=== PATIENT | male | born 1995 | race Caucasian/White ===

== ENCOUNTER 2023-08-06 22:27 | Observation (INO) | payer MEDICAID, SELFPAY ==
[2023-08-06] VITALS (12 sets, daily range): BP systolic 124–142; BP diastolic 75–100; PULSE 0–105; RESP 18–21; TEMP 36.1; O2SAT 96–98
--- NOTE | 2023-08-06 22:25 | W.ED.GENAD ---
Discharge Plan Disposition Patient Disposition: Admit to [facility] Condition: Improving Discharge Details Clinical Impression: Acute hyperglycemia, Syncope Primary Care Provider: None,None ED Provider: Herve Polo Discharge Data Discharge Physician: Herve Polo Medical Decision Making MDM: Summary: Patient who presents to the emergency department after he had a syncopal episode while he was in the bathroom found unresponsive him Narcan and fluids and fingerstick glucose showed sugar of 500. He does state he has been drinking a lot of fluid lately and is an unknown diabetic. Labs show a VBG which shows acidosis but urinalysis does not show ketonuria. Serum glucose was elevated. CAT scan of the head was negative and an EKG was done and negative. He is unsure why he had the syncopal episode and why he is hyperglycemic he was given IV fluids and insulin in the emergency department and will be admitted for observation Data Review Analysis All the data on this patient was reviewed by me including laboratory and imaging studies as well as bedside studies performed by me Independent review of Studies Imaging CT scan was negative Lab: Labs show hyperglycemia and glycosuria but no ketonuria Risk Stratification: Patient with syncope and also hyperglycemia is not sure if the syncopal episode cause hypoglycemia or vice versa but he will be admitted for observation and further studies Differential Diagnosis: 1. Syncope 2. New onset diabetes 3. Hyperglycemia 4. Drug overdose 5. Consultants: I have consulted with the hospitalist who will admit the patient for observation Shared disposition: I have shared with the patient that he will need to be admitted Impression: Medical Records Medical records reviewed: Yes I reviewed the patient's medical records. Lab Data Lab results reviewed: Yes I reviewed the patient's lab results. ECG Data Attestation: I personally reviewed and interpreted this ECG (s) as follows: Interpretation: Normal sinus rhythm heart rate of [address]-T changes normal axis HPI General Date/Time Provider Initiated Documentation: 08/06/23 22:38. HPI Narrative: Patient presents emergency department after found unresponsive in the bathtub. He was giving Narcan and brought into the emergency department. Fingerstick glucose by the paramedics was 560. Patient is not a known diabetic. Denies any drug use. Review of Systems Narrative: Review of Systems: Constitutional: No fevers, chills, sweats Eye: No recent visual problems ENT: No ear pain, nasal congestion, sore throat Respiratory: No shortness of breath, cough Cardiovascular: No Chest pain, palpitations, syncope Gastrointestinal: No nausea, vomiting, diarrhea Genitourinary: No hematuria Mike/Lymph: Negative for bruising tendency, swollen lymph glands Endocrine: Negative for excessive thirst, excessive hunger Musculoskeletal: No back pain, neck pain, joint pain, muscle pain, decreased range of motion Integumentary: No rash, pruritus, abrasions Neurologic: Alert & oriented X 4 Psychiatric: No anxiety, depression PFSH All Active Problems (Updated 08/06/23 @ 23:57 by Herve Polo MD) Syncope (Chronic) Acute hyperglycemia (Acute) Social History Smoking/Tobacco Use Status: Current every day Tobacco Type: e-cigarettes Smoking risk assessment performed?: Yes Substance use type: does not use Do you feel safe at home: Yes Do you feel safe in your relationship?: Yes Exam Narrative Exam Narrative: Exam; vitals signs as reported above normal Constitutional; In no acute distress, afebrile General: cooperative, healthy appearing, comfortable and no acute distress HEENT: Head: normal to inspection, no palpable skull fracture and normocephalic atraumatic Eyes: : appearance normal, both eyes and all related structures EOM intact bilaterally Pupils: PERRL : conjunctiva normal Direct ophthalmoscopy: normal light reflex, normal conjunctiva, normal visual acuity Ears: Normal TM, normal external canal Nose: normal no rhinorreha Neck no JVD, supple non tender Neck: normal visual inspection, full ROM and no lymphadenopathy Chest: normal inspection of the chest Respiratory : normal respiratory effort and able to speak in complete sentences no wheezing no rales Cardio Rate: regular rate, rhythm: regular rhythm normal heart sounds S1 and S2 no murmurs, gallops, or rubs GI : normal to inspection, normal bowel sounds, soft, non tender, non distended, no organomegaly Back/Spine/ no CVA tenderness Thoracic/Lumbar Spine: no tenderness or deformities Skin no rashes or lesions Neuro: patient alert oriented x 4 and no meningeal signs, Cranial Nerves: CN's II-XI intact bilaterally, Cognition: normal cognition, Speech: speech normal, Gait: normal gait, Depp tendon reflexes normal 2+ muscle strength 5/5 bilaterally Extremities, no edema, full range of motion, normal strength : normal Rectal:
--- NOTE | 2023-08-06 22:30 | DI.CT_ITS ---
Exam(s) CT HEAD WO EXAM: CT HEAD WO CLINICAL HISTORY: unresposniveness. TECHNIQUE: Imaging Protocol: Axial computed tomography images with coronal and sagittal reformatted images were created and reviewed COMPARISON: No exams were available for comparison FINDINGS: Ventricles and Extra axial spaces: Normal in size and morphology for the patient's age. Hemorrhage: None. Cerebral parenchyma: There is an area of encephalomalacia at the left temporoparietal junction. No a cute mass effect is identified. Midline shift: None. Brainstem/Cerebellum: Normal. Calvarium: Normal. Visualized Paranasal sinuses/Mastoids: Clear. Soft Tissues: Unremarkable. IMPRESSION: No acute intracranial process. RADIATION DOSE DELIVERED: Total DLP DATA REPOSITORY: All CT scans at this facility are submitted to the National Radiology Data Registry (NRDR) Dose Index Registry (DIR) with the [employer] ([employer]). RADIATION OPTIMIZATION: All CT scans at this facility use at least one of these dose optimization te chniques: automated exposure control; mA and/or kV adjustment per patient size (includes targeted exa ms where dose is matched to clinical indication); or iterative reconstruction.
[2023-08-06] MEDS: Normal Saline 1,000 ML 1000 ML IV (22:43)
[2023-08-06 22:45] LABS: BE (Venous) -5 mmol/L (-2-3); HCO3 (Venous) 23 mmol/L (23-28); O2 Sat (Venous) 71 %; TCO2 (Venous) 22 mmol/L (24-29); pCO2 (Venous) 59 mmHg (41-51); pO2 (Venous) 46 mmHg
[2023-08-06 22:46] LABS: Abs Immature Grans 0.23 10^3/uL (0.0-0.06); Absolute Basophil Count 0.04 10^3/uL (0.0-0.2); Absolute Eosinophil Count 0.06 10^3/uL (0.0-0.7); Absolute Lymphocyte Count 2.74 10^3/uL (1.2-3.4); Absolute Monocyte Count 0.53 10^3/uL (0.1-0.8); Absolute Neutrophil Count 6.73 10^3/uL (1.2-6.7); Basophils % 0.4; Eosinophils % 0.6; HCT 42.1 % (40.0-50.0); HGB 14.2 g/dL (13.5-17.5); Immature Grans % 2.2; Lymphocytes % 26.5; MCHC 33.7 % (32.0-36.0); MCV 92 fL (80-95); MPV 9.2 fL (8.0-11.0); Monocytes % 5.1; Neutrophils % 65.2; Platelet Count 337 10^3/uL (130-400); RBC 4.58 10^6/uL (4.36-5.78); RDW 11.8 % (11.8-14.1); RDW-SD 39.9 fL; WBC 10.33 10^3/uL (4.4-10.8)
[2023-08-06 22:56] LABS: Bilirubin Negative (Negative); Blood Negative (Negative); Clarity Clear (Clear); Glucose 500 mg/dL (Negative); Ketones Negative (Negative); Leukocyte Esterase Negative (Negative); Nitrite Negative (Negative); Specific Gravity >= 1.030 (1.005-1.025); Urobilinogen 0.2 mg/dL (Up to 0.2)
[2023-08-06 23:05] LABS: Epithelial Cells Rare HPF (Negative); WBC 0-2 HPF (0-5)
[2023-08-06 23:06] LABS: Bacteria Negative HPF (Negative); C & S Indicated? No; Casts 3-5 Hyaline LPF (Negative); Crystals Negative HPF (Negative); Mucus Heavy (Negative)
[2023-08-06 23:07] LABS: ALT 35 U/L (16-63); AST 20 U/L (15-37); Alkaline Phosphatase 61 U/L (46-116); Anion Gap 11.8 mmol/L (3-11); BUN 13 mg/dL (7-18); Bilirubin, Total 0.2 mg/dL (0.2-1.0); CO2 25.2 mmol/L (21.0-32.0); CREATININE 1.5 mg/dL (0.70-1.30); Calcium 8.3 mg/dL (8.5-10.1); Chloride 100 mmol/L (98-107); Estimated GFR 64.23 (mL/min/1.73m2); Glucose 402 mg/dL (74-106); Lipase 30 U/L (16-77); Sodium 137 mmol/L (136-145); Total Protein 7.4 g/dL (6.4-8.2)
[2023-08-06 23:08] LABS: *AMPHETAMINES SCREEN URINE Negative (Negative); *BARBITURATES SCREEN URINE Negative (Negative); *BENZODIAZEPINES SCREEN URINE Negative (Negative); Cannabinoids THC Negative (Negative); Cocaine Screen,Urine Positive (Negative); METHADONE URINE SCREEN Negative (Negative); OPIATES URINE SCREEN Negative (Negative)
[2023-08-06 23:09] LABS: Tricyclic Antidepressants Negative (Negative)
--- NOTE | 2023-08-06 23:15 | RT.EKG_ITS ---
APPROVED REPORT Exam: Resting ECG Reason for Exam: syncope Patient Location: E HR:85 bpm ECG Measurements Heart Rate 85 AXIS CA 151 P 66 QRSd 109 QRS -11 QT 378 T 26 QTc 449 Conclusion Sinus rhythm...normal P axis, V-rate 60- 99
--- NOTE | 2023-08-06 23:41 | DI.VRAD_ITS ---
PROCEDURE INFORMATION: Exam: CT Head Without Contrast Exam date and time: 08/06/2023 11:18 PM Age: 28 years old Clinical indication: Injury or trauma; Fall; Blunt trauma (contusions or hematomas); Consciousness not specified; Injury details: Fell in shower, hit head, was unresponsive; Additional info: HX of stroke TECHNIQUE: Imaging protocol: Computed tomography of the head without contrast. COMPARISON: No relevant prior studies available. FINDINGS: Brain: Mild volume loss No hemorrhage. Unremarkable white matter. No mass effect. Cerebral ventricles: No ventriculomegaly. Paranasal sinuses: Visualized sinuses are unremarkable. No fluid levels. Mastoid air cells: Visualized mastoid air cells are well aerated. Bones/joints: Unremarkable. No acute fracture. Soft tissues: Unremarkable. IMPRESSION: No acute intracranial hemorrhage noted Dictated and Authenticated by: Say Ayala MD. Ordering:TRISH Edgar MD
[2023-08-07] VITALS (58 sets, daily range): BP systolic 74–135; BP diastolic 53–92; PULSE 50–81; RESP 9–21; TEMP 36.6–36.9; O2SAT 93–100
[2023-08-07] MEDS: INSULIN REGULAR IN 0.9 % NACL 100 UNIT/100 ML BAG IV (00:02)
[2023-08-07 00:34] LABS: BE (Venous) -1 mmol/L (-2-3); HCO3 (Venous) 25 mmol/L (23-28); O2 Sat (Venous) 89 %; TCO2 (Venous) 23 mmol/L (24-29); pCO2 (Venous) 52 mmHg (41-51); pO2 (Venous) 60 mmHg
[2023-08-07 00:42] LABS: Hemoglobin A1C 5.5 % (<5.7)
[2023-08-07 00:44] LABS: Troponin I < 50 ng/L (<or=60)
[2023-08-07 00:56] LABS: Anion Gap 14.2 mmol/L (3-11); BUN 14 mg/dL (7-18); CO2 22.8 mmol/L (21.0-32.0); CREATININE 1.6 mg/dL (0.70-1.30); Calcium 8.4 mg/dL (8.5-10.1); Calculated LDL 131 mg/dL (<100); Chloride 100 mmol/L (98-107); Cholesterol 190 mg/dL (<200); ETHANOL BLOOD < 3.0 mg/dL (<10); Estimated GFR 59.44 (mL/min/1.73m2); Glucose 410 mg/dL (74-106); HDL Cholesterol 49 mg/dL (40-60); Magnesium 1.8 mg/dL (1.8-2.4); Sodium 137 mmol/L (136-145); TSH (W/Ref FT4) 7.08 uIU/mL (0.36-3.74); Triglyceride 54 mg/dL (<150)
[2023-08-07 01:02] LABS: D-Dimer 397 ng/mlFEU (<500)
[2023-08-07 01:15] LABS: FREE T4 0.93 ng/dL (0.76-1.46)
--- NOTE | 2023-08-07 02:00 | W.PC.ACHO ---
Registration Status: REG ER Primary Language: Preferred Language: ED Information & Data Chief Complaint [id number] 08/06/23 22:29 Chief Complaint [id number] 08/06/23 22:26 Triage Note PT was found unresponsive in 08/06/23 22:26 the bathroom. PT was given Narcan and became A&OX4. PT BG was 500 for EMS Most Recent Vital Signs Temperature 36.1 C L 08/06/23 22:26 Temperature Source Temporal Artery Scan 08/06/23 22:26 Pulse 61 08/07/23 01:16 Pulse 63 08/07/23 01:20 Respiratory Rate 11 L 08/07/23 01:01 Respiratory Effort Normal 08/06/23 22:29 Respiratory Depth Normal 08/06/23 22:29 Respiratory Pattern Normal 08/06/23 22:29 Blood Pressure 107/53 L 08/07/23 01:16 Blood Pressure Mean 66 08/07/23 01:16 Pulse Oximetry 96 08/07/23 01:20 Oxygen Delivery Method Room Air 08/06/23 22:26 Oxygen Flow Rate 0 08/06/23 22:26 Pain Level 0 08/06/23 22:26 Allergies No Known Allergies Allergy (Unverified 08/07/23 01:13) IV IV Catheter Type [Right Saline Lock Antecubital] IV Catheter Type [Left Saline Lock Antecubital] IV Catheter Gauge [Right 18 Antecubital] IV Catheter Gauge [Left 18 Antecubital] Diet Orders Category Date Time Status Diabetes Consistent CHO [DIET] Nutrition 08/07/23 Breakfast Active Diagnostics 08/07/23 08/07/23 08/07/23 Range/Units 01:28 01:27 00:26 WBC (4.4-10.8) 10^3/uL RBC (4.36-5.78) 10^6/uL Hgb (13.5-17.5) g/dL Hct (40.0-50.0) % MCV (80-95) fL MCH (27.0-33.0) pg MCHC (32.0-36.0) % RDW (11.8-14.1) % Plt Count (130-400) 10^3/uL MPV (8.0-11.0) fL Immature Gran % Neutrophils % Lymphocytes % Monocytes % Eosinophils % Basophils % Nucleated RBC % (0.0-0.3) % Absolute Neutrophils (1.2-6.7) 10^3/uL Absolute Lymphocytes (1.2-3.4) 10^3/uL Absolute Monocytes (0.1-0.8) 10^3/uL Absolute Eosinophils (0.0-0.7) 10^3/uL Absolute Basophils (0.0-0.2) 10^3/uL D-Dimer (<500) ng/mlFEU VBG pH 7.30 L (7.31-7.41) VBG pCO2 52 H (41-51) mmHg VBG pO2 60 mmHg VBG HCO3 25 (23-28) mmol/L VBG Total CO2 23 L (24-29) mmol/L VBG O2 Saturation 89 % VBG Base Excess -1 (-2-3) mmol/L Sodium (136-145) mmol/L Potassium (3.5-5.1) mmol/L Chloride (98-107) mmol/L Carbon Dioxide (21.0-32.0) mmol/L Anion Gap (3-11) mmol/L BUN (7-18) mg/dL Creatinine (0.70-1.30) mg/dL Est GFR (CKD-EPI 2020) (mL/min/1.73m2) Glucose (74-106) mg/dL Hemoglobin A1c (<5.7) % C-Peptide ng/ml Pending Calcium (8.5-10.1) mg/dL Phosphorus Pending Magnesium (1.8-2.4) mg/dL Total Bilirubin (0.2-1.0) mg/dL AST (15-37) U/L ALT (16-63) U/L Alkaline Phosphatase (46-116) U/L Troponin I (<or=60) ng/L Total Protein (6.4-8.2) g/dL Albumin (3.4-5.0) g/dL Triglycerides (<150) mg/dL Total Cholesterol (<200) mg/dL LDL Cholesterol, Calc (<100) mg/dL HDL Cholesterol (40-60) mg/dL Lipase (16-77) U/L TSH (0.36-3.74) uIU/mL Free T4 (0.76-1.46) ng/dL Urine Color Pending (Yellow) Urine Clarity Pending (Clear) Urine pH Pending (5-8) Ur Specific [place] Pending (1.005-1.025) Urine Protein Pending (Negative) mg/dL Urine Ketones Pending (Negative) mg/dL Urine Blood Pending (Negative) Urine Nitrite Pending (Negative) Urine Bilirubin Pending (Negative) Urine Urobilinogen Pending (Up to 0.2) mg/dL Ur Leukocyte Esterase Pending (Negative) Urine RBC (0-2) HPF Urine WBC (0-5) HPF Ur Epithelial Cells (Negative) HPF Urine Crystals (Negative) HPF Urine Bacteria (Negative) HPF Urine Casts (Negative) LPF Urine Mucus (Negative) Ur Culture Indicated? Urine Glucose Pending (Negative) mg/dL Urine Opiates Screen (Negative) Urine Methadone Screen (Negative) Ur Barbiturates Screen (Negative) Ur Tricyclics Screen (Negative) Ur Amphetamines Screen (Negative) U Benzodiazepines Scrn (Negative) Urine Cocaine Screen (Negative) Ur THC Screen (Negative) Ethyl Alcohol (<10) mg/dL 08/06/23 08/06/23 08/06/23 Range/Units 22:48 22:39 22:38 WBC 10.33 (4.4-10.8) 10^3/uL RBC 4.58 (4.36-5.78) 10^6/uL Hgb 14.2 (13.5-17.5) g/dL Hct 42.1 (40.0-50.0) % MCV 92 (80-95) fL MCH 31.0 (27.0-33.0) pg MCHC 33.7 (32.0-36.0) % RDW 11.8 (11.8-14.1) % Plt Count 337 (130-400) 10^3/uL MPV 9.2 (8.0-11.0) fL Immature Gran % 2.2 Neutrophils % 65.2 Lymphocytes % 26.5 Monocytes % 5.1 Eosinophils % 0.6 Basophils % 0.4 Nucleated RBC % 0.0 (0.0-0.3) % Absolute Neutrophils 6.73 H (1.2-6.7) 10^3/uL Absolute Lymphocytes 2.74 (1.2-3.4) 10^3/uL Absolute Monocytes 0.53 (0.1-0.8) 10^3/uL Absolute Eosinophils 0.06 (0.0-0.7) 10^3/uL Absolute Basophils 0.04 (0.0-0.2) 10^3/uL D-Dimer 397 (<500) ng/mlFEU VBG pH 7.20 L (7.31-7.41) VBG pCO2 59 H (41-51) mmHg VBG pO2 46 mmHg VBG HCO3 23 (23-28) mmol/L VBG Total CO2 22 L (24-29) mmol/L VBG O2 Saturation 71 % VBG Base Excess -5 L (-2-3) mmol/L Sodium 137 137 (136-145) mmol/L Potassium 4.0 4.0 (3.5-5.1) mmol/L Chloride 100 100 (98-107) mmol/L Carbon Dioxide 25.2 22.8 (21.0-32.0) mmol/L Anion Gap 11.8 H 14.2 H (3-11) mmol/L BUN 13 14 (7-18) mg/dL Creatinine 1.5 H 1.6 H (0.70-1.30) mg/dL Est GFR (CKD-EPI 2020) 64.23 59.44 (mL/min/1.73m2) Glucose 402 H 410 H (74-106) mg/dL Hemoglobin A1c 5.5 (<5.7) % C-Peptide ng/ml Calcium 8.3 L 8.4 L (8.5-10.1) mg/dL Phosphorus Magnesium 1.8 (1.8-2.4) mg/dL Total Bilirubin 0.2 (0.2-1.0) mg/dL AST 20 (15-37) U/L ALT 35 (16-63) U/L Alkaline Phosphatase 61 (46-116) U/L Troponin I < 50 (<or=60) ng/L Total Protein 7.4 (6.4-8.2) g/dL Albumin 4.0 (3.4-5.0) g/dL Triglycerides 54 (<150) mg/dL Total Cholesterol 190 (<200) mg/dL LDL Cholesterol, Calc 131 H (<100) mg/dL HDL Cholesterol 49 (40-60) mg/dL Lipase 30 (16-77) U/L TSH 7.08 H (0.36-3.74) uIU/mL Free T4 0.93 (0.76-1.46) ng/dL Urine Color Yellow (Yellow) Urine Clarity Clear (Clear) Urine pH 6.0 (5-8) Ur Specific [place] >= 1.030 H (1.005-1.025) Urine Protein 100 H (Negative) mg/dL Urine Ketones Negative (Negative) mg/dL Urine Blood Negative (Negative) Urine Nitrite Negative (Negative) Urine Bilirubin Negative (Negative) Urine Urobilinogen 0.2 (Up to 0.2) mg/dL Ur Leukocyte Esterase Negative (Negative) Urine RBC 3-5 H (0-2) HPF Urine WBC 0-2 (0-5) HPF Ur Epithelial Cells Rare (Negative) HPF Urine Crystals Negative (Negative) HPF Urine Bacteria Negative (Negative) HPF Urine Casts 3-5 Hyaline (Negative) LPF Urine Mucus Heavy (Negative) Ur Culture Indicated? No Urine Glucose 500 H (Negative) mg/dL Urine Opiates Screen Negative (Negative) Urine Methadone Screen Negative (Negative) Ur Barbiturates Screen Negative (Negative) Ur Tricyclics Screen Negative (Negative) Ur Amphetamines Screen Negative (Negative) U Benzodiazepines Scrn Negative (Negative) Urine Cocaine Screen Positive A (Negative) Ur THC Screen Negative (Negative) Ethyl Alcohol < 3.0 (<10) mg/dL [id number] Documentation Fingerstick Glucose Start: 08/06/23 22:28 Freq: .Stat Status: Active Protocol: Activity Type Activity Date Activity User E-sign Co-sign Detail Recorded Client Recorded Date Recorded By Document 08/07/23 00:01 [id number] 08/07/23 00:01 FACUNDO Fingerstick Glucose Start: 08/07/23 00:27 Freq: .AC Status: Complete Protocol: Activity Type Activity Date Activity User E-sign Co-sign Detail Recorded Client Recorded Date Recorded By Document 08/07/23 01:08 BKG DAEMON(5) [id number] 08/07/23 01:12 BKG DAEMON(6) Intake and Output - 24 Hour Total 08/06/23 22:24 thru 08/07/23 01:43 Intake Total 2.2 Balance 2.2 Weight 90.718 kg Intake: IV 2.2 Falls Risk Assessment History of Falls No History 08/06/23 22:29 Contributing Factors No Factors 08/06/23 22:29 Fall Total Score 0 08/06/23 22:29 Level of Risk Standard/Low Risk 08/06/23 22:29 Problems (Last Reviewed 08/06/23 @ 22:33 by Herve Polo MD) Syncope (Chronic) Acute hyperglycemia (Acute) v v v v v v v v v Sending and/or Receiving Nurses: Please use comment section below to note any information pertinent to the patient hand-off not included above. Information / Comments: Report received from: gregor Valladares RN
[2023-08-07 02:44] LABS: BUN 14 mg/dL (7-18); Calcium 8.7 mg/dL (8.5-10.1); Chloride 107 mmol/L (98-107); Estimated GFR 104.48 (mL/min/1.73m2); Glucose 90 mg/dL (74-106); Potassium 4.5 mmol/L (3.5-5.1); Sodium 143 mmol/L (136-145)
--- NOTE | 2023-08-07 02:45 | W.PM.HP.N ---
Date of service: 08/07/23 Time of Service: 02:45 Assessment and Plan Assessment and plan (1) Syncope: Status: Chronic Assessment and plan: This happened in the shower, but none of the prodrome and associated symptoms of a vasovagal episode. Reassuring EKG, troponin. Will monitor on tele. Given his history and the presenting acidosis and hyperglycemia, seizure makes the most sense. He has not had one in years and is not on therapy. Will get EEG and Neurology consult. I am concerned for the risk of recurrent seizures especially given his occupation. (2) Acute hyperglycemia: Status: Acute Assessment and plan: Hyperglycemia in 4-500 range on presentation. This combined with the acidemia raised concern for DKA. However with no ketonuria and an initial anion gap of only 11.8, he did not meet diagnostic criteria. I had stopped the insulin drip started in the ED and was going to use subcut basal insulin, but another BMP resulted with a widened anion gap so we decided to resume the drip and admit to the ICU. His glucose immediately corrected so the drip is already off. It turns out the second BMP was ran on the initial blood that was stored, so the anion gap was spurious. Repeat at 2:30am normalized. He does endorse urinating a lot, but upon review symptoms are not c/w diabetes. A1c is normal. I thinks hyperglycemia was an acute stress response, and he does not have diabetes. (3) Cocaine use: Status: Acute Assessment and plan: He denies chronic use, but this may have been a contributing factor to the event. He does not appear intoxicated or withdrawing now on stimulant or opioid. I did send fentanyl screen on urine. (4) Nicotine vapor product user: Status: Acute Assessment and plan: Declines NRT for now. 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 He states he felt well, in his normal state of health, and was taking a shower at around 9pm. His next recollection is being on a stretcher with EMS. He states his [id number] found him in the bathroom after hearing a crash in the bathroom. There was no description of seizure-like activity. He isn't sure how long he was down, but they live [place] the [address] from [facility] so it may have only been a few minutes. He had no prodrome to loosing consciousness. No lightheadedness, nausea, diaphoresis, chest pain, or palpitations. He never had this kind of episode before. His only current symptoms are feeling generally fatigued and sore on his anterior lip. His blood sugar in the field was 500. He was also given Narcan and fluids without report of a clear response. He states he had a stroke when he was born and had seizures as a young child, but they were so long ago he doesn't remember the seizures or taking medication for them. He does have a neurologist in [place] that he last saw a few years ago and had and MRI. He did just move up to [place] to live with his in-laws. 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 He has been eating and drinking normally. He always urinates frequently and drinks a lot of water because he works outside, but no change in this over the past weeks to months. No weight changes. He states he did use a couple bumps of cocaine over the weekend, but not the day this happened. He denies using other drugs or alcohol prior to this episode. Review of Systems Constitutional Constitutional: Denies anorexia, Denies body ache(s), Denies chills, Reports fatigue, Denies fever(s), Denies frequent falls, Denies headache(s) (has had headaches but not recently), Denies weakness, Denies weight gain and Denies weight loss Eyes Eyes: Denies change in vision and Denies irritation ENT Ears, Nose, Mouth, and Throat: Denies vertigo, Denies dizziness, Denies headache(s) (has had headaches but not recently), Denies mouth lesions, Denies nasal congestion, Denies nasal discharge, Denies disequilibrium, Denies sinus pain and Denies sore throat Cardiovascular Cardiovascular: Denies chest pain, Denies chest pain with activity, Denies pedal edema, Denies irregular heart rhythm, Denies palpitations, Denies dyspnea, Denies dyspnea on exertion and Denies orthopnea Respiratory Respiratory: Denies cough, Denies excessive phlegm production, Denies dyspnea, Denies dyspnea on exertion and Denies wheezing Gastrointestinal Gastrointestinal: Denies abdominal pain, Denies melena, Denies hematochezia, Denies change in stool character, Denies constipation, Denies heartburn, Denies diarrhea, Denies nausea and Denies vomiting Genitourinary Genitourinary: Denies hematuria, Denies dysuria and Denies urinary incontinence Musculoskeletal Musculoskeletal: Denies abnormal gait and Denies arthralgias Integumentary/Breasts Skin/Breast: Denies rash and Denies skin ulcer Neurologic Neurologic: Reports as per HPI, Denies abnormal movements, Denies abnormal speech, Denies abnormal gait, Denies behavioral changes, Denies confusion, Denies vertigo, Denies dizziness, Denies frequent falls, Denies headache(s) (has had headaches but not recently), Denies localized weakness, Denies sensory deficit, Denies tremor(s), Denies disequilibrium and Denies weakness Psychiatric Psychiatric: Denies behavioral changes, Denies confusion and Denies mood swings Endocrine Endocrine: Reports fatigue and Denies palpitations Hematologic/Lymphatic Hematologic/Lymphatic: Denies easy bleeding Allergic/Immunologic Allergic/Immunologic: Denies wheezing PFSH All Active Problems (Updated 08/07/23 @ 03:31 by Marvin Nunez) Discharge planning issues (Acute) DVT prophylaxis (Acute) Nicotine vapor product user (Acute) Cocaine use (Acute) Syncope (Chronic) Acute hyperglycemia (Acute) Medical History (Updated 08/07/23 @ 03:31 by Marvin Nunez) History of CVA (cerebrovascular accident) Social History (Updated 08/07/23 @ 03:14 by Marvin Nunez) Smoking/Tobacco Use Status: Current every day Tobacco Type: e-cigarettes Smoking risk assessment performed?: Yes Alcohol Intake: current Alcohol Intake frequency: a few times a month Drug use: Socially Substance use type: crack/cocaine Do you feel safe at home: Yes Do you feel safe in your relationship?: Yes Additional Social history: Lives with Laxmi and her parents in [facility] 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 No acute distress at rest. HEENT: Head atraumatic. Conjunctiva clear, no icterus. PEERL, EOMI. no rhinorrhea. MMM, OP benign. No tongue trauma, only mild swelling anterior lower lip, no cut/bite. Neck is supple with no masses or lymphadenopathy, trachea midline LUNGS: CTAB with normal effort CV: RRR with no murmurs, gallops, or rubs. ABD: +BS, soft, NT/ND, no masses/HSM EXT: no cyanosis, clubbing, or edema MSK: No joint redness or swelling NEURO: CN 2-12 intact. No pronator drift. Normal FNF. Normal sensation to light touch and strength in 4 extremities. DTRs 1+ tejas achilles, toes downgoing bilaterally. Stable/normal gait. Normal speech. No tremor or abnormal movement. Normal speech. SKIN: No rashes or open wounds. PSYCH: normal mood and affect, normal thought process Results Imaging EKG: report reviewed and image reviewed (NSR 86, normal axis, intervals. No ST-T abnormalities) Imaging Studies: CT head: No acute intracranial hemorrhage noted. Mild volume loss. Labs 08/06/23 22:39 08/07/23 02:30 Labs: Laboratory Results - last 24 hr 08/06/23 08/06/23 08/06/23 22:38 22:39 22:48 WBC 10.33 RBC 4.58 Hgb 14.2 Hct 42.1 MCV 92 MCH 31.0 MCHC 33.7 RDW 11.8 Plt Count 337 MPV 9.2 Immature Gran % 2.2 Neutrophils % 65.2 Lymphocytes % 26.5 Monocytes % 5.1 Eosinophils % 0.6 Basophils % 0.4 Nucleated RBC % 0.0 Absolute Neutrophils 6.73 H Absolute Lymphocytes 2.74 Absolute Monocytes 0.53 Absolute Eosinophils 0.06 Absolute Basophils 0.04 D-Dimer 397 VBG pH 7.20 L VBG pCO2 59 H VBG pO2 46 VBG HCO3 23 VBG Total CO2 22 L VBG O2 Saturation 71 VBG Base Excess -5 L Sodium 137 137 Potassium 4.0 4.0 Chloride 100 100 Carbon Dioxide 22.8 25.2 Anion Gap 14.2 H 11.8 H BUN 14 13 Creatinine 1.6 H 1.5 H Est GFR (CKD-EPI 2020) 59.44 64.23 Glucose 410 H 402 H Hemoglobin A1c 5.5 Calcium 8.4 L 8.3 L Magnesium 1.8 Total Bilirubin 0.2 AST 20 ALT 35 Alkaline Phosphatase 61 Troponin I < 50 Total Protein 7.4 Albumin 4.0 Triglycerides 54 Total Cholesterol 190 LDL Cholesterol, Calc 131 H HDL Cholesterol 49 Lipase 30 TSH 7.08 H Free T4 0.93 Urine Color Yellow Urine Clarity Clear Urine pH 6.0 Ur Specific [place] >= 1.030 H Urine Protein 100 H Urine Ketones Negative Urine Blood Negative Urine Nitrite Negative Urine Bilirubin Negative Urine Urobilinogen 0.2 Ur Leukocyte Esterase Negative Urine RBC 3-5 H Urine WBC 0-2 Ur Epithelial Cells Rare Urine Crystals Negative Urine Bacteria Negative Urine Casts 3-5 Hyaline Urine Mucus Heavy Ur Culture Indicated? No Urine Glucose 500 H Urine Opiates Screen Negative Urine Methadone Screen Negative Ur Barbiturates Screen Negative Ur Tricyclics Screen Negative Ur Amphetamines Screen Negative U Benzodiazepines Scrn Negative Urine Cocaine Screen Positive A Ur THC Screen Negative Ethyl Alcohol < 3.0 08/07/23 00:26 WBC RBC Hgb Hct MCV MCH MCHC RDW Plt Count MPV Immature Gran % Neutrophils % Lymphocytes % Monocytes % Eosinophils % Basophils % Nucleated RBC % Absolute Neutrophils Absolute Lymphocytes Absolute Monocytes Absolute Eosinophils Absolute Basophils D-Dimer VBG pH 7.30 L VBG pCO2 52 H VBG pO2 60 VBG HCO3 25 VBG Total CO2 23 L VBG O2 Saturation 89 VBG Base Excess -1 Sodium Potassium Chloride Carbon Dioxide Anion Gap BUN Creatinine Est GFR (CKD-EPI 2020) Glucose Hemoglobin A1c Calcium Magnesium Total Bilirubin AST ALT Alkaline Phosphatase Troponin I Total Protein Albumin Triglycerides Total Cholesterol LDL Cholesterol, Calc HDL Cholesterol Lipase TSH Free T4 Urine Color Urine Clarity Urine pH Ur Specific [place] Urine Protein Urine Ketones Urine Blood Urine Nitrite Urine Bilirubin Urine Urobilinogen Ur Leukocyte Esterase Urine RBC Urine WBC Ur Epithelial Cells Urine Crystals Urine Bacteria Urine Casts Urine Mucus Ur Culture Indicated? Urine Glucose Urine Opiates Screen Urine Methadone Screen Ur Barbiturates Screen Ur Tricyclics Screen Ur Amphetamines Screen U Benzodiazepines Scrn Urine Cocaine Screen Ur THC Screen Ethyl Alcohol Last Vital Signs Temp 36.1 C L 08/06/23 22:26 Pulse 61 08/07/23 01:16 Resp 11 L 08/07/23 01:01 BP 107/53 L 08/07/23 01:16 Pulse Ox 96 08/07/23 01:20 Time Spent Time spent with Patient: >75 minutes Time was spent: preparing to see the patient(eg.review tests), obtaining and/or reviewing separately otained hiistory, ordering medications,tests, procedures, referring, communicating with other health attending ambulatory care, indepentently interpreting results and counseling the patient
[2023-08-07 03:22] LABS: PHOSPHORUS 4.1 mg/dL (2.6-4.7)
[2023-08-07] MEDS: Normal Saline Flush 10 ML SYR (03:35)
[2023-08-07 03:58] LABS: Bilirubin Negative (Negative); Blood Negative (Negative); Clarity Clear (Clear); Glucose >=1000 mg/dL (Negative); Ketones Negative (Negative); Leukocyte Esterase Negative (Negative); Nitrite Negative (Negative); Specific Gravity >= 1.030 (1.005-1.025); Urobilinogen 0.2 mg/dL (Up to 0.2)
--- NOTE | 2023-08-07 09:36 | NUR.NOTE ---
Accessed chart to determine orders for EKG and to determine whether or not one needs to be cancelled. Nursing Note:
--- NOTE | 2023-08-07 09:48 | W.PM.DS.N ---
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, patient seems like he may have had an unwitnessed seizure -Patient also admitted to recent cocaine use, as this may have been a trigger for his seizure -He has had no other witnessed seizure-like activity during hospitalization -Recommend establishing with a local PCP, referral sent to neurology for further evaluation (2) Acute hyperglycemia: Status: Acute Asessment and Plan: - As noted above, patient initially hyperglycemic in the emergency department -This was likely a stress reaction secondary to presumed seizure (3) Cocaine use: Status: Acute Asessment and Plan: - Patient stated that he only did 1 bump, and that he does not frequently use -It was explained to the patient that due to his brain injury as a child, he is at significant increased risk of further brain damage or seizure disorder if he were to continue to use illicit substances and it was recommended that he abstain from all recreational drugs (4) Nicotine vapor product user: Status: Acute Discharge Plan Disposition Patient Disposition: Home Condition: Good Discharge Details Reason For Visit: syncope, hyperglycemia Admit Date/Time: 08/06/23 23:54 Admit Provider: Marvin Nunez Attending Provider: Marvin Nunez Primary Care Provider: None,None Hospital Course Hospital Course: Patient presented to the emergency department after an episode of loss of consciousness which was unwitnessed. 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 He was also hyperglycemic, with initial concerns for diabetes however his A1c was normal and this was likely secondary to stress reaction from presumed seizure. Additionally, patient had positive urine cocaine patient admitted to using cocaine about a day prior to the event. It was explained that he should avoid drug use, as having had anoxic brain injury as a puts him at significant risk for further brain damage or seizure disorder. He will be set up with a new PCP and have neurology referral at discharge. Home Meds and New Rx's Prescriptions: No Action No Known Home Meds Discharge Instructions Instructions: Generalized Tonic Clonic Seizures (DC) Referrals: Shiloh Howell MD [ [facility] STAFF PHYSICIAN] - PROVIDER,AMBULATORY [[facility] STAFF PHYSICIAN] - Activity:: Activity as Tolerated Equipment/Supplies:: No Equipment Needed Diet:: As Tolerated Discharge Orders Discharge Orders: Discharge Order (Routine); Ordered 08/07/23 Ordered By: Roosevelt Oconnell DS: Summary Time Spent with Patient providing and/or coordinating discharge services: Greater than 30 minutes Status at Discharge Functional status at discharge: independent ambulation Overall status at discharge: patient is back to baseline Mental Status: mental status grossly normal Speech and Movement: speech and movement normal Mood: congruent mood Affect: normal affect Exam Narrative Exam Narrative: Well-appearing young gentleman sitting in bed in no acute distress, ANO x4, heart regular rate and rhythm, lungs clear to auscultation bilaterally, cranial nerves II through XII intact with no small sensation and strength in bilateral upper and lower extremities Psych Mental Status: mental status grossly normal Speech and Movement: speech and movement normal Mood: congruent mood Affect: normal affect DS: Data Vitals/I&O Vitals and I&O: Vital Signs Temperature 98.4 F 08/07/23 03:00 Temperature Source Temporal Artery Scan 08/07/23 03:00 Pulse 56 L 08/07/23 05:46 Pulse 50 L 08/07/23 05:46 Respiratory Rate 12 08/07/23 05:46 Respiratory Effort Normal, Non-Labored 08/07/23 03:00 Respiratory Depth Normal 08/07/23 03:00 Respiratory Pattern Normal 08/07/23 03:00 Blood Pressure 74/64 L 08/07/23 05:46 Blood Pressure Mean 68 08/07/23 05:46 Blood Pressure Position Supine 08/07/23 03:00 Pulse Oximetry 95 08/07/23 05:46 Oxygen Delivery Method Room Air 08/07/23 05:00 Oxygen Flow Rate 0 08/07/23 05:00 Pain Level 0 08/07/23 03:00 Intake & Output 08/06/23 08/07/23 08/07/23 17:59 05:59 17:59 Intake Total 1002.9 / 1002.9 420 / 420 Balance 1002.9 / 1002.9 420 / 420 Weight 190 lb 11.198 oz Intake: IV 1002.9 / 1002.9 Oral 420 / 420 Data Completed and Pending Labs on day of discharge: Labs from last 24 hours 08/07/23 08/07/23 08/07/23 02:45 02:30 00:26 WBC RBC Hgb Hct MCV MCH MCHC RDW Plt Count MPV Immature Gran % Neutrophils % Lymphocytes % Monocytes % Eosinophils % Basophils % Nucleated RBC % Absolute Neutrophils Absolute Lymphocytes Absolute Monocytes Absolute Eosinophils Absolute Basophils D-Dimer VBG pH 7.30 L VBG pCO2 52 H VBG pO2 60 VBG HCO3 25 VBG Total CO2 23 L VBG O2 Saturation 89 VBG Base Excess -1 Sodium 143 Potassium 4.5 Chloride 107 Carbon Dioxide 27.0 Anion Gap 9.0 BUN 14 Creatinine 1.0 Est GFR (CKD-EPI 2020) 104.48 Glucose 90 Hemoglobin A1c C-Peptide ng/ml Cancelled Calcium 8.7 Phosphorus 4.1 Magnesium Total Bilirubin AST ALT Alkaline Phosphatase Troponin I Total Protein Albumin Triglycerides Total Cholesterol LDL Cholesterol, Calc HDL Cholesterol Lipase TSH Free T4 Urine Color Yellow Urine Clarity Clear Urine pH 6.0 Ur Specific [place] >= 1.030 H Urine Protein Negative Urine Ketones Negative Urine Blood Negative Urine Nitrite Negative Urine Bilirubin Negative Urine Urobilinogen 0.2 Ur Leukocyte Esterase Negative Urine RBC Urine WBC Ur Epithelial Cells Urine Crystals Urine Bacteria Urine Casts Urine Mucus Ur Culture Indicated? Urine Glucose >=1000 H Urine Opiates Screen Urine Methadone Screen Urine Fentanyl LCMSMS Pending Urine Fentanyl Interp Pending Ur Norfentanyl LCMSMS Pending Ur Barbiturates Screen Ur Tricyclics Screen Ur Amphetamines Screen U Benzodiazepines Scrn Urine Cocaine Screen Ur THC Screen Ethyl Alcohol 08/06/23 08/06/23 08/06/23 22:48 22:39 22:38 WBC 10.33 RBC 4.58 Hgb 14.2 Hct 42.1 MCV 92 MCH 31.0 MCHC 33.7 RDW 11.8 Plt Count 337 MPV 9.2 Immature Gran % 2.2 Neutrophils % 65.2 Lymphocytes % 26.5 Monocytes % 5.1 Eosinophils % 0.6 Basophils % 0.4 Nucleated RBC % 0.0 Absolute Neutrophils 6.73 H Absolute Lymphocytes 2.74 Absolute Monocytes 0.53 Absolute Eosinophils 0.06 Absolute Basophils 0.04 D-Dimer 397 VBG pH 7.20 L VBG pCO2 59 H VBG pO2 46 VBG HCO3 23 VBG Total CO2 22 L VBG O2 Saturation 71 VBG Base Excess -5 L Sodium 137 137 Potassium 4.0 4.0 Chloride 100 100 Carbon Dioxide 25.2 22.8 Anion Gap 11.8 H 14.2 H BUN 13 14 Creatinine 1.5 H 1.6 H Est GFR (CKD-EPI 2020) 64.23 59.44 Glucose 402 H 410 H Hemoglobin A1c 5.5 C-Peptide ng/ml Calcium 8.3 L 8.4 L Phosphorus Magnesium 1.8 Total Bilirubin 0.2 AST 20 ALT 35 Alkaline Phosphatase 61 Troponin I < 50 Total Protein 7.4 Albumin 4.0 Triglycerides 54 Total Cholesterol 190 LDL Cholesterol, Calc 131 H HDL Cholesterol 49 Lipase 30 TSH 7.08 H Free T4 0.93 Urine Color Yellow Urine Clarity Clear Urine pH 6.0 Ur Specific [place] >= 1.030 H Urine Protein 100 H Urine Ketones Negative Urine Blood Negative Urine Nitrite Negative Urine Bilirubin Negative Urine Urobilinogen 0.2 Ur Leukocyte Esterase Negative Urine RBC 3-5 H Urine WBC 0-2 Ur Epithelial Cells Rare Urine Crystals Negative Urine Bacteria Negative Urine Casts 3-5 Hyaline Urine Mucus Heavy Ur Culture Indicated? No Urine Glucose 500 H Urine Opiates Screen Negative Urine Methadone Screen Negative Urine Fentanyl LCMSMS Urine Fentanyl Interp Ur Norfentanyl LCMSMS Ur Barbiturates Screen Negative Ur Tricyclics Screen Negative Ur Amphetamines Screen Negative U Benzodiazepines Scrn Negative Urine Cocaine Screen Positive A Ur THC Screen Negative Ethyl Alcohol < 3.0 PFSH All Active Problems (Updated 08/07/23 @ 03:31 by Marvin Nunez) Discharge planning issues (Acute) DVT prophylaxis (Acute) Nicotine vapor product user (Acute) Cocaine use (Acute) Syncope (Chronic) Acute hyperglycemia (Acute) Medical History (Updated 08/07/23 @ 03:31 by Marvin Nunez) History of CVA (cerebrovascular accident) Social History (Updated 08/07/23 @ 03:14 by Marvin Nunez) Smoking/Tobacco Use Status: Current every day Tobacco Type: e-cigarettes Smoking risk assessment performed?: Yes Alcohol Intake: current Alcohol Intake frequency: a few times a month Drug use: Socially Substance use type: crack/cocaine Housing: house Do you feel safe at home: Yes Do you feel safe in your relationship?: Yes Additional Social history: Lives with Laxmi and her parents in [facility] 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
[2023-08-11 08:36] LABS: Fentanyl Interpretation Positive.
== END 2023-08-07 11:45 | disposition home or self-care (01) ==
LOC: ER 08-07 → ICU 08-07 05:19
PROVIDERS: Admitting Provider Family Medicine; Emergency Provider Emergency Medicine Emergency Medical Services; Visit Provider Family Medicine
DX: R55 Syncope and collapse (principal); R73.9 Hyperglycemia, unspecified; F14.90 Cocaine use, unspecified, uncomplicated; F17.290 Nicotine dependence, other tobacco product, uncomplicated; Z87.898 Personal history of other specified conditions
CPT/HCPCS: 00123; 36415; 36416; 80048; 80053; 80061; 80307; 82805; 82962; 83690; 93005; 96360; 96361; 96365; 99285; 70450; 80320; 80354; 81003; 81015; 83036; 83735; 84100; 84439; 84443; 84484; 84681; 85025; 85379; 93010; 99239; G0378